=== PATIENT | male | born 1995 | race Caucasian/White ===

== ENCOUNTER 2016-09-10 21:51 | Emergency (ER) | payer OTHER ==
[~2016-09-10] VITALS: Ht 188 cm; Wt 78.0 kg
[2016-09-10 22:37] VITALS: BP 131/59; PULSE 58; RESP 16; TEMP 97.9; O2SAT 100
[2016-09-10 23:20] VITALS: BP 115/47
[2016-09-10] MEDS ORDERED: IBUP400T20 PO (23:28)
--- NOTE | 2016-09-10 23:41 | PD ---
HPI Chief Complaint: Flank/Kidney Pain Time Seen by Provider: 23:35 Travel History International Travel<30 days: No Contact w/Intl Traveler<30days: No Traveled to known affect area: No History of Present Illness HPI 20-year-old male presents to the emergency department by private transportation the care of his mother for evaluation of sudden onset of sided flank pain radiating to the left groin and testicle. No pitting penile discharge. No scrotal edema or testicular mass. No reported injury or trauma. No dysuria frequency urgency or gross hematuria. Family history of kidney stones. Reportedly small amount of blood in stool. No reported family history of GI illness or inflammatory bowel disease. Presently patient has no pain. Patient briefly on antibiotic for recent dental implants and has scheduled dental extraction for wisdom teeth removal upcoming Wednesday. Patient denies other concerns or complaints. Symptoms resolved spontaneously no medications taken. Unable to identify exacerbating or alleviating factors. PFSH Past Medical History Narrative Medical Negative past medical history; dental implant; no tobacco use; nursing notes reviewed Medical History: Denies Significant Hx Diminished Hearing: No Tetanus Vaccination: Unknown Influenza Vaccination: No Past Surgical History Oral Surgery: Yes Social History Alcohol Use: Yes (occassional) Tobacco Use: No Substance Use: No Allergies-Medications (Allergen,Severity, Reaction): Coded Allergies: No Known Allergies (Unverified , 09/10/16) Reported Meds & Prescriptions Reported Meds & Active Scripts Active Reported Ibuprofen 400 Mg Tab 400 Mg PO Q6H PRN Review of Systems Except as stated in HPI: all other systems reviewed are Neg General / Constitutional: No: Fever, Chills HENT: No: Congestion Cardiovascular: No: Chest Pain or Discomfort Respiratory: No: Shortness of Breath Gastrointestinal: Positive: Nausea, Abdominal Pain, No: Vomiting, Diarrhea Genitourinary: Positive: Flank Pain (left-sided), Other (referred left testicular pain resolved), No: Urgency, Frequency (left lower quadrant) Musculoskeletal: No: Myalgias, Arthralgias Skin: No Rash Neurologic: No: Weakness Psychiatric: No: Anxiety Hematologic/Lymphatic: No: Lymph Node Enlargement Physical Exam Narrative GENERAL: Well-developed nourished male no acute distress no respiratory distress SKIN: Warm and dry. HEAD: Normocephalic. EYES: No scleral icterus. No injection or drainage. NECK: Supple, trachea midline. No JVD or lymphadenopathy. CARDIOVASCULAR: Regular rate and rhythm without murmurs, gallops, or rubs. RESPIRATORY: Breath sounds equal bilaterally. No accessory muscle use. GASTROINTESTINAL: Abdomen soft, non-tender, nondistended. Mild left-sided tenderness to palpation without guarding or rebound. : Circumcised male no penile discharge bilaterally center testicles no testicular mass or tenderness no scrotal edema no hernia. Positive cremasteric reflex. MUSCULOSKELETAL: No cyanosis, or edema. BACK: Nontender without obvious deformity. No CVA tenderness. Data Data Last Documented VS Vital Signs Date Time Temp Pulse Resp B/P Pulse Ox O2 Delivery O2 Flow Rate FiO2 09/11/16 01:06 56 16 119/64 99 Room Air 09/10/16 22:37 97.9 Orders Complete Blood Count With Diff (09/10/16 23:35) Basic Metabolic Panel (Bmp) (09/10/16 23:35) Urinalysis - C+S If Indicated (09/10/16 23:35) Ecg Monitoring (09/10/16 23:35) Iv Access Insert/Monitor (09/10/16 23:35) Sodium Chloride 0.9% Flush (Ns Flush) (09/10/16 23:45) Ct Abd/Pel W/O Iv Contrast (09/11/16 ) Labs Laboratory Tests Test 09/10/16 23:45 White Blood Count 10.3 TH/MM3 Red Blood Count 4.97 MIL/MM3 Hemoglobin 14.7 GM/DL Hematocrit 43.2 % Mean Corpuscular Volume 87.0 FL Mean Corpuscular Hemoglobin 29.5 PG Mean Corpuscular Hemoglobin 33.9 % Concent Red Cell Distribution Width 12.7 % Platelet Count 356 TH/MM3 Mean Platelet Volume 6.9 FL Neutrophils (%) (Auto) 79.7 % Lymphocytes (%) (Auto) 14.1 % Monocytes (%) (Auto) 5.6 % Eosinophils (%) (Auto) 0.4 % Basophils (%) (Auto) 0.2 % Neutrophils # (Auto) 8.2 TH/MM3 Lymphocytes # (Auto) 1.5 TH/MM3 Monocytes # (Auto) 0.6 TH/MM3 Eosinophils # (Auto) 0.0 TH/MM3 Basophils # (Auto) 0.0 TH/MM3 CBC Comment DIFF FINAL Differential Comment Urine Color YELLOW Urine Turbidity SLIGHT Urine pH 6.0 Urine Specific Wray 1.016 Urine Protein NEG mg/dL Urine Glucose (UA) NEG mg/dL Urine Ketones NEG mg/dL Urine Occult Blood LARGE Urine Nitrite NEG Urine Bilirubin NEG Urine Leukocyte Esterase NEG Urine RBC 100-200 /hpf Urine WBC 0-2 /hpf Urine Squamous Epithelial 0-5 /hpf Cells Urine Bacteria NONE /hpf Microscopic Urinalysis Comment CULT NOT INDICATED Sodium Level 143 MEQ/L Potassium Level 3.7 MEQ/L Chloride Level 106 MEQ/L Carbon Dioxide Level 32.4 MEQ/L Anion Gap 5 MEQ/L Blood Urea Nitrogen 10 MG/DL Creatinine 1.10 MG/DL Estimat Glomerular Filtration 86 ML/MIN Rate Random Glucose 88 MG/DL Calcium Level 8.7 MG/DL [facility] Medical Decision Making Medical Screen Exam Complete: Yes Emergency Medical Condition: Yes Medical Record Reviewed: Yes Interpretation(s) CBC & BMP Diagram 09/10/16 23:45 Vital Signs Date Time Temp Pulse Resp B/P Pulse Ox O2 Delivery O2 Flow Rate FiO2 09/11/16 01:06 56 16 119/64 99 Room Air 09/11/16 00:27 65 17 135/52 100 Room Air 09/10/16 23:20 115/47 09/10/16 22:37 97.9 58 16 131/[address] abd/pel FINDINGS: There is a nonobstructing left midpole renal calculus measuring 1.9 mm on image 28. There is slight dilatation of left ureter. No ureteral stones are present. There is a 3.9 mm calculus in the dependent portion of the urinary bladder at the midline. The adrenals, spleen, pancreas, liver, gallbladder, right kidney, appendix, small bowel, large bowel and prostate are unremarkable. No adenopathy or aneurysm. Lung bases are clear. Osseous structures are intact. CONCLUSION: 1. Slight dilatation of the left ureter. 2. Nonobstructing left renal calculus. 3. 3.9 mm bladder calculus. Yusef Edwards MD on September 11, 2016 at 1:34 Board Certified Radiologist. This report was verified electronically. Differential Diagnosis Flank pain, obstructive uropathy, colitis; also to consider testicular torsion, epididymitis Narrative Course IV access obtained specimens collected and sent for resulting; patient is completely symptomatic at this time; no medications indicated at this time Urinalysis shows large blood and numerous RBCs; patient remains asymptomatic for pain of presentation but in view of sudden onset flank pain with blood and urine desirous of proceeding with CT imaging CT abdomen and pelvis noncontrast kidney stone protocol shows dilation of the left ureter 1.9 mm stone in the left kidney and 3.9 mm stone in the bladder in the dependent position Diagnosis Primary Impression: Renal colic on left side Additional Impression: Nephrolithiasis Referrals: Primary Care Physician call for appointment Urologist call for appointment Patient Instructions: General Instructions Additional Instructions: Increase fluid hydration Strain urine Take medication as prescribed as needed for pain and/or nausea vomiting Return to the emergency department for any concerns or change in condition Med/Other Pt SpecificInfo: Prescription(s) given Scripts Ibuprofen 600 Mg [id number] Mg PO Q6H PRN (Pain/Inflammation) #12 TAB Ref 0 Prov:Mally Wolfe MD 09/11/16 Ondansetron Odt (Zofran Odt)4 Mg Tab4 Mg SL Q6HR PRN (Nausea/Vomiting) #10 TAB Ref 0 Prov:Mally Wolfe MD 09/11/16 Disposition: 01 DISCHARGE HOME Condition: Stable Mally Wolfe MD Sep 10, 2016 23:41
[2016-09-10] MEDS ORDERED: SODIUM CHLORIDE 0.9% FLUSH 10 ML FLUSH IVF PRN (23:45)
[2016-09-10 23:54] LABS: BLOOD, URINE LARGE (NEG); GLUCOSE,URINE NEG (NEG); KETONE, URINE NEG (NEG); NITRITE,URINE NEG (NEG)
[2016-09-10 23:55] LABS: AUTOMATED NEUTROPHIL # 8.2 TH/MM3 (1.8-7.7); BASOPHIL % 0.2 % (0.0-2.0); EOSINOPHIL % 0.4 % (0.0-4.0); HEMATOCRIT 43.2 % (39.0-51.0); HEMO FLAGS DIFF FINAL; LYMPH % 14.1 % (9.0-44.0); LYMPHOCYTE # 1.5 TH/MM3 (1.0-4.8); MEAN CORPUSCULAR HEMOGLOBIN 29.5 PG (27.0-34.0); MEAN CORPUSCULAR HGB CONC 33.9 % (32.0-36.0); MONO % 5.6 % (0.0-8.0); NEUT % 79.7 % (16.0-70.0); PLATELET COUNT 356 TH/MM3 (150-450); RED BLOOD COUNT 4.97 MIL/MM3 (4.50-5.90); RED CELL DISTRIBUTION WIDTH 12.7 % (11.6-17.2); WHITE BLOOD COUNT 10.3 TH/MM3 (4.0-11.0)
[2016-09-10 23:58] LABS: URINE COLOR YELLOW (YELLW/STRAW)
[2016-09-10 23:59] LABS: COMMENT (UR) CULT NOT INDICATED; CULTURE IF INDICATED CULT NOT INDICATED; RBC, URINE 100-200 /hpf (0-3); SQUAMOUS EPITHELIAL CELL URINE 0-5 /hpf (0-5); WBC, URINE 0-2 /hpf (0-5)
[2016-09-11 00:01] LABS: POTASSIUM 3.7 MEQ/L (3.5-5.1)
[2016-09-11 00:04] LABS: BICARBONATE 32.4 MEQ/L (21.0-32.0)
[2016-09-11 00:27] VITALS: BP 135/52; PULSE 65; RESP 17; O2SAT 100
[2016-09-11 01:06] VITALS: BP 119/64; PULSE 56; RESP 16; O2SAT 99
--- NOTE | 2016-09-11 01:38 | RADRPT ---
EXAM DATE/TIME: 09/11/2016 01:12 [place] COMPARISON: No previous studies available for comparison. INDICATIONS : Left flank pain today with painful urination. ORAL CONTRAST: No oral contrast ingested. RADIATION DOSE: 7.82 CTDIvol (mGy) MEDICAL HISTORY : None SURGICAL HISTORY : None. ENCOUNTER: Initial ACUITY: 1 day PAIN SCALE: 8/10 LOCATION: Left flank TECHNIQUE: Volumetric scanning of the abdomen and pelvis was performed. Using automated exposure control and ad justment of the mA and/or kV according to patient size, radiation dose was kept as low as reasonably achievable to obtain optimal diagnostic quality images. DICOM format image data is available electro nically for review and comparison. FINDINGS: There is a nonobstructing left midpole renal calculus measuring 1.9 mm on image 28. There is slight d ilatation of left ureter. No ureteral stones are present. There is a 3.9 mm calculus in the dependent portion of the urinary bladder at the midline. The adrenals, spleen, pancreas, liver, gallbladder, r ight kidney, appendix, small bowel, large bowel and prostate are unremarkable. No adenopathy or aneur ysm. Lung bases are clear. Osseous structures are intact. CONCLUSION: 1. Slight dilatation of the left ureter. 2. Nonobstructing left renal calculus. 3. 3.9 mm bladder calculus. Yusef Edwards MD on September 11, 2016 at 1:34 Board Certified Radiologist. This report was verified electronically.
[2016-09-11] MEDS ORDERED: ZOFR4TAB3 SL (01:43)
[2016-09-11] MEDS ORDERED: IBUP-232 PO (01:43)
== END 2016-09-11 02:13 | disposition home or self-care (01) ==
LOC: PHED 21:51
DX: N20.0 Calculus of kidney (principal); N21.0 Calculus in bladder
CPT/HCPCS: 74176; 80048; 81001; 85025